=== PATIENT | male | born 1965 | race Two or more races ===

== ENCOUNTER 2023-03-30 15:08 | Emergency (ER) | payer MEDICAID, OTHER ==
[~2023-03-30] VITALS: Ht 162.6 cm; Wt 82.0 kg
[2023-03-30] MEDS ORDERED: SILVER SULFADIAZINE 1 % TOPICAL CREAM 50GM TOP ONE (16:15)
[2023-03-30] MEDS ORDERED: TETANUS-DIPTH-ACEL PERTUSSIS 0.5ML SYR Tdap IM ONE (16:15)
[2023-03-30] MEDS ORDERED: HYDROcodone-ACET 10/325MG TAB PO ONE (16:15)
[2023-03-30] MEDS ORDERED: KETOROLAC TROMETH 60MG/2ML VIAL IM ONE (16:15)
[2023-03-30] MEDS ORDERED: HYDR-4798 PO (17:06)
[2023-03-30] MEDS ORDERED: SILV1CRE82 TOP (17:06)
[2023-03-30] MEDS ORDERED: CEPH250C PO (17:06)
[2023-03-30] MEDS ORDERED: IBUP-1456 PO (17:06)
[2023-03-30 17:15] VITALS: BP 123/78
== END 2023-03-30 17:17 | disposition home or self-care (01) ==
LOC: ER 15:08
DX: T22.111A Burn of first degree of right forearm, initial encounter (principal); X11.8XXA Contact with other hot tap-water, initial encounter; Y93.89 Activity, other specified; Y92.89 Other specified places as the place of occurrence of the external cause; Y99.8 Other external cause status
CPT/HCPCS: 90471; 90715; 96372; 99284; J1885